=== PATIENT | female | born 1995 | race Caucasian/White ===

== ENCOUNTER 2020-05-03 14:08 | Emergency (ER) | payer OTHER ==
[~2020-05-03] VITALS: Ht 167.6 cm; Wt 63.5 kg
--- NOTE | 2020-05-03 14:18 | NUR ---
CAME IN FOR RIGHT HAND NUMBNESS X 2 DAYS, TO ER BED 11, HOOKED TO MONITOR, CHANGED TO HOSP GOWN, WARM BLANKET PROVIDED, PATIENT AAO x 4, BREATHING EVEN AND UNABORED, DR PITTMAN AT BEDSIDE
[2020-05-03] MEDS ORDERED: LIDOCAINE /MPF 1% VIAL 5 ML VIAL ONE (15:23)
[2020-05-03] MEDS ORDERED: CEFTRIAXONE 500 MG VIAL ONE (15:23)
[2020-05-03] MEDS ORDERED: AZITHROMYCIN 250 MG TABLET ONE (15:23)
[2020-05-03] MEDS ORDERED: CEFTRIAXONE 500 MG VIAL IM ONE (15:30)
[2020-05-03] MEDS ORDERED: AZITHROMYCIN 250 MG TABLET PO ONE (15:30)
--- NOTE | 2020-05-03 15:43 | NUR ---
URINE SAMPLE COLLECTED AND SENT TO LAB
--- NOTE | 2020-05-03 15:55 | NUR ---
Patient discharged to home in stable condition. Written and verbal after care instructions given. Patient verbalizes understanding of instruction.
[2020-05-03 15:56] VITALS: BP 134/86
== END 2020-05-03 15:56 | disposition home or self-care (01) ==
LOC: ER 14:08
DX: G56.31 Lesion of radial nerve, right upper limb (principal); F17.200 Nicotine dependence, unspecified, uncomplicated
CPT/HCPCS: 29125; 72125; 87491; 87591; 96372; 99284; J0696; J3490; L3763

== ENCOUNTER 2020-08-21 23:52 | Emergency (ER) | payer OTHER ==
[~2020-08-21] VITALS: Ht 167.6 cm; Wt 59.0 kg
[2020-08-21 23:58] VITALS: BP 116/94
== END 2020-08-22 00:18 ==
LOC: ER 23:52
DX: L02.416 Cutaneous abscess of left lower limb (principal)